=== PATIENT | female | born 1975 | race Caucasian/White ===

== ENCOUNTER 2018-03-28 19:52 | Emergency (ER) | payer BC, MEDICAID ==
[~2018-03-28] VITALS: Ht 152.4 cm; Wt 104.5 kg
[2018-03-28 20:13] VITALS: BP 120/95
--- NOTE | 2018-03-28 20:20 | NUR ---
PT AMBULATED TO BED 06.
--- NOTE | 2018-03-28 20:29 | NUR ---
PT TO ED WITH C/O LWOER BACK PAIN X 6 DAYS. PT DENIES INJURY OR TRAUMA. NO OBVIOUS DEFORMITY OR INJURY NOTED. PT REPORTS INABILTIY TO STRETCH DOWN TO LEGS. PT PLACED INTO BED, PENDING MD FINNEY. PMH--DENIES RX--DENIES
--- NOTE | 2018-03-28 20:31 | NUR ---
PT LYING IN BED, U/A WAS COLLECTED. PT TOLERATED WELL.
--- NOTE | 2018-03-28 21:09 | NUR ---
Dr. Shelley evaluating patient at bedside.
[2018-03-28] MEDS ORDERED: CYCLOBENZAPRINE 10 MG TAB PO ONE (21:15)
[2018-03-28] MEDS ORDERED: MORPHINE SULFATE 4 MG/ML SYR IM ONE (21:15)
--- NOTE | 2018-03-28 21:28 | NUR ---
im meds given-nadr at this time, pt sent to ct via bed with tech
--- NOTE | 2018-03-28 21:35 | NUR ---
PT AMBULATED INDEPENDANTLY TO RESTROOM. PT TOLERATED WELL.
--- NOTE | 2018-03-28 22:00 | NUR ---
PT HAVING PAIN, PAIN LEVEL 8/10 . REQUESTING MORE MEDICATION. ER MD MADE AWARE
[2018-03-28] MEDS ORDERED: KETOROLAC 30 MG/ML VIAL IM ONE (22:45)
--- NOTE | 2018-03-28 22:45 | NUR ---
Pt requesting more pain medication before she leaves, Dr. Shelley made aware. Pt states "the pain medication is weaing off." New orders received.
[2018-03-28 22:55] VITALS: BP 120/95
--- NOTE | 2018-03-28 22:55 | NUR ---
Patient discharged with v/s stable. Written and verbal after care instructions given and explained. Patient alert, oriented and verbalized understanding of instructions. Ambulatory with steady gait. All questions addressed prior to discharge. ID band removed. Patient advised to follow up with PMD. Rx of FLEXERIL AND IBUPROFEN WAS given. Patient educated on indication of medication including possible reaction and side effects. Opportunity to ask questions provided and answered.
== END 2018-03-28 22:55 | disposition home or self-care (01) ==
LOC: MED 19:52
DX: S39.012A Strain of muscle, fascia and tendon of lower back, initial encounter (principal); K57.90 Diverticulosis of intestine, part unspecified, without perforation or abscess without bleeding; Z87.442 Personal history of urinary calculi; X58.XXXA Exposure to other specified factors, initial encounter; Y93.89 Activity, other specified; Y92.89 Other specified places as the place of occurrence of the external cause; Y99.8 Other external cause status
CPT/HCPCS: 74176; 81002; 81025; 96372; 99284; J1885; J2270